=== PATIENT | male | born 1965 | race Caucasian/White ===

== ENCOUNTER 2016-11-16 06:02 | Emergency (ER) | payer OTHER ==
[~2016-11-16] VITALS: Ht 177.8 cm; Wt 107.0 kg
[~2016-11-16 06:02] MED LIST: LISI-366 PO; LISI40TA; MAXZ PO
[2016-11-16 06:29] VITALS: BP 126/87; PULSE 90; RESP 18; TEMP 98.7; O2SAT 98
--- NOTE | 2016-11-16 06:30 | PD ---
HPI Chief Complaint: Carter act Time Seen by Provider: 06:08 Travel History International Travel<30 days: No Contact w/Intl Traveler<30days: No Traveled to known affect area: No History of Present Illness HPI 51-year-old white male presents to emergency department under Carter act by PD. The patient states that over last year or 2 he's had progressive problems with depression. The patient states that it seemed to start after his father . He said soon after that his [id number] . Later in the year his developed gastric cancer and the week of . He also states that he's been depressed regarding his own health. He has recently had been diagnosed with stage IV kidney disease secondary to poorly controlled hypertension. He also has a heart murmur. Social Security has denied his disability. Since then he's been battling depression and anxiety. He has spoke to his physician regarding this. He was allegedly going to be referred to a psychologist before he was put on medication. The patient had a anxiety attack this evening. He called his daughter and notified her that he was going to overdose on his 2 bottles of blood pressure medicines. She called police who responded to the scene. The patient denies any toxic ingestions. He denies any drugs or alcohol. No recent illness. PFSH Past Medical History Narrative Medical Anxiety, depression, hypertension, heart murmur Anxiety: Yes Cardiovascular Problems: Yes (htn mitral valve prolapse) Diminished Hearing: No Hypertension: Yes Tetanus Vaccination: < 5 Years Past Surgical History Narrative Surgical Left knee arthroscopy Social History Alcohol Use: Yes (rare) Tobacco Use: No Substance Use: No Allergies-Medications (Allergen,Severity, Reaction): Coded Allergies: ibuprofen (Unverified Allergy, Mild, sweeling, 10/01/16) Reported Meds & Prescriptions Reported Meds & Active Scripts Active Lisinopril 40 mg (Lisinopril) 40 Mg Tab 1 Tab PO DAILY 30 Days Maxzide (Triamterene/HCTZ) 75 Mg/50 Mg Tab 1 Tab PO DAILY 30 Days Reported Maxzide (Triamterene/HCTZ) 75 Mg/50 Mg Tab 1 Tab PO DAILY Prinivil 40 mg (Lisinopril) 40 Mg Tab Review of Systems Except as stated in HPI: all other systems reviewed are Neg Psychiatric: Positive: Depression, Suicidal Ideations, No: Anxiety, Disorder of Thought, Mood Disorder, Homicidal Ideation Physical Exam Narrative GENERAL: Well-nourished, well-developed patient. SKIN: Warm and dry. HEAD: Normocephalic and atraumatic. EYES: No scleral icterus. No injection or drainage. ENT: No nasal drainage noted. Mucous membranes pink. Airway patent. NECK: Supple, trachea midline. Moves head freely without obvious discomfort. CARDIOVASCULAR: Regular rate and rhythm without murmurs, gallops, or rubs. RESPIRATORY: Breath sounds equal bilaterally. No accessory muscle use. GASTROINTESTINAL: Abdomen soft, non-tender, nondistended. EXTREMITIES: No cyanosis or edema. BACK: Nontender without obvious deformity. No CVA tenderness. NEURO: Patient is alert and oriented. no sensorimotor deficits. Nonfocal. Normal speech. PSYCH: No delusions. No auditory or visual hallucinations. Data Data Orders Orders Complete Blood Count With Diff (11/16/16 06:15) Comprehensive Metabolic Panel (11/16/16 06:15) Urinalysis - C+S If Indicated (11/16/16 06:15) Psych Screen (11/16/16 06:15) Drug Screen, Random Urine (11/16/16 06:15) Alcohol (Ethanol) (11/16/16 06:15) MDM Medical Decision Making Medical Screen Exam Complete: Yes Emergency Medical Condition: Yes Medical Record Reviewed: Yes Differential Diagnosis MDM: High Differential diagnoses: Schizophrenia, schizoaffective disorder, bipolar, anxiety, depression, adjustment reaction, mood disorder NOS, ODD, depressive disorder NOS, dementia, dementia with agitation, psychosis NOS, substance induced mood disorder, intermittent explosive disorder, Asperger syndrome, infection,electrolyte abnormality, malingering. Narrative Course Mental health screening discussed with the patient. Psychiatric screen ordered. The patient has been medically cleared. This is medical clearance for psychiatric admission Diagnosis Primary Impression: Medical clearance for psychiatric admission Condition: Stable Bhavin Gomez Nov 16, 2016 06:29
[2016-11-16] MEDS ORDERED: TRIA1TAB5 PO (06:47)
[2016-11-16] MEDS ORDERED: LISI40TA PO (06:47)
[2016-11-16] MEDS ORDERED: AMLO10 PO (06:47)
[2016-11-16 07:21] LABS: AUTOMATED NEUTROPHIL # 5.9 TH/MM3 (1.8-7.7); BASOPHIL # 0.1 TH/MM3 (0-0.2); BASOPHIL % 0.8 % (0.0-2.0); EOSINOPHIL # 0.3 TH/MM3 (0-0.4); EOSINOPHIL % 3.4 % (0.0-4.0); HEMATOCRIT 38.9 % (39.0-51.0); HEMO FLAGS DIFF FINAL; LYMPH % 18.9 % (9.0-44.0); LYMPHOCYTE # 1.7 TH/MM3 (1.0-4.8); MEAN CELL VOLUME 85.5 FL (80.0-100.0); MEAN CORPUSCULAR HEMOGLOBIN 29.5 PG (27.0-34.0); MEAN CORPUSCULAR HGB CONC 34.5 % (32.0-36.0); MONO % 9.7 % (0.0-8.0); NEUT % 67.2 % (16.0-70.0); PLATELET COUNT 246 TH/MM3 (150-450); RED BLOOD COUNT 4.55 MIL/MM3 (4.50-5.90); RED CELL DISTRIBUTION WIDTH 13.6 % (11.6-17.2); WHITE BLOOD COUNT 8.8 TH/MM3 (4.0-11.0)
[2016-11-16 07:43] LABS: ANION GAP 10 MEQ/L (5-15); AST (GOT) 35 U/L (15-37); BICARBONATE 21.1 MEQ/L (21.0-32.0); BLOOD UREA NITROGEN 40 MG/DL (7-18); CHLORIDE 108 MEQ/L (98-107); GLOMERULAR FILTRATION RATE 36 ML/MIN (>89); POTASSIUM 3.7 MEQ/L (3.5-5.1); SODIUM (NA) 139 MEQ/L (136-145)
[2016-11-16 07:44] LABS: ALT (GPT) 31 U/L (12-78)
[2016-11-16 07:46] LABS: ALKALINE PHOSPHATASE 107 U/L (45-117); TOTAL BILIRUBIN ADULT 0.2 MG/DL (0.2-1.0)
[2016-11-16 07:50] LABS: ALCOHOL LESS THAN 3 MG/DL (0-5)
--- NOTE | 2016-11-16 08:21 | PD ---
Physical Exam Date Seen by Provider: Nov 16, 2016 Narrative This patient was signed out to me at 7 AM by Bhavin Gomez pending medical clearance labs for a psychiatric evaluation. Data Data Last Documented VS Vital Signs Date Time Temp Pulse Resp B/P (MAP) Pulse Ox O2 Delivery O2 Flow Rate FiO2 11/16/16 06:29 98.7 90 18 126/87 (100) 98 Orders Orders Complete Blood Count With Diff (11/16/16 06:15) Comprehensive Metabolic Panel (11/16/16 06:15) Urinalysis - C+S If Indicated (11/16/16 06:15) Psych Screen (11/16/16 06:15) Drug Screen, Random Urine (11/16/16 06:15) Alcohol (Ethanol) (11/16/16 06:15) Ns (Bolus) Inj (11/16/16 08:30) Ns (Bolus) Inj (11/16/16 08:30) Labs Laboratory Tests Test 11/16/16 07:00 White Blood Count 8.8 TH/MM3 Red Blood Count 4.55 MIL/MM3 Hemoglobin 13.4 GM/DL Hematocrit 38.9 % Mean Corpuscular Volume 85.5 FL Mean Corpuscular Hemoglobin 29.5 PG Mean Corpuscular Hemoglobin Concent 34.5 % Red Cell Distribution Width 13.6 % Platelet Count 246 TH/MM3 Mean Platelet Volume 9.1 FL Neutrophils (%) (Auto) 67.2 % Lymphocytes (%) (Auto) 18.9 % Monocytes (%) (Auto) 9.7 % Eosinophils (%) (Auto) 3.4 % Basophils (%) (Auto) 0.8 % Neutrophils # (Auto) 5.9 TH/MM3 Lymphocytes # (Auto) 1.7 TH/MM3 Monocytes # (Auto) 0.9 TH/MM3 Eosinophils # (Auto) 0.3 TH/MM3 Basophils # (Auto) 0.1 TH/MM3 CBC Comment DIFF FINAL Differential Comment Blood Urea Nitrogen 40 MG/DL Creatinine 1.94 MG/DL Random Glucose 104 MG/DL Total Protein 7.5 GM/DL Albumin 3.9 GM/DL Calcium Level 9.1 MG/DL Alkaline Phosphatase 107 U/L Aspartate Amino Transf (AST/SGOT) 35 U/L Alanine Aminotransferase (ALT/SGPT) 31 U/L Total Bilirubin 0.2 MG/DL Sodium Level 139 MEQ/L Potassium Level 3.7 MEQ/L Chloride Level 108 MEQ/L Carbon Dioxide Level 21.1 MEQ/L Anion Gap 10 MEQ/L Estimat Glomerular Filtration Rate 36 ML/MIN Ethyl Alcohol Level LESS THAN 3 MG/DL MDM Supervised Visit with JEFF: Yes Narrative Course CBC & BMP Diagram 11/16/16 07:00 Total Protein 7.5, Albumin 3.9, Calcium Level 9.1, Alkaline Phosphatase 107, Aspartate Amino Transf (AST/SGOT) 35, Alanine Aminotransferase (ALT/SGPT) 31, Total Bilirubin 0.2 Alcohol level is negative. His BUN and creatinine are increased from previous. The ratio indicates dehydration. I have ordered 2 L of fluid. Otherwise, he is medically clear for psychiatric evaluation. Diagnosis Primary Impression: Medical clearance for psychiatric admission Additional Impression: Dehydration Condition: Stable Meri Salas MD Nov 16, 2016 08:21
[2016-11-16] MEDS ORDERED: SODIUM CHLOR 0.9% 1000 ML INJ 1,000 ML IV ONE ×2 (08:30)
[2016-11-16 09:50] LABS: BLOOD, URINE NEG (NEG); COMMENT (UR) CULT NOT INDICATED; CULTURE IF INDICATED CULT NOT INDICATED; GLUCOSE,URINE NEG (NEG); HYALINE CAST, URINE 3 /lpf (RARE); KETONE, URINE NEG (NEG); MUCUS URINE FEW /lpf (OCC); NITRITE,URINE NEG (NEG); SQUAMOUS EPITHELIAL CELL URINE 1 /hpf (0-5); URINE COLOR YELLOW (YELLW/STRAW)
[2016-11-16] MEDS: OXYMETAZOLINE HCL 0.05% 15 ML NASAL SPRAY NASAL SCH ×2 (11:31→21:00)
[2016-11-16 16:09] VITALS: BP 145/102; PULSE 77; RESP 14; TEMP 98.5; O2SAT 98
[2016-11-16 18:10] VITALS: BP 141/92; PULSE 75; RESP 18; TEMP 98.1; O2SAT 99
[2016-11-17 00:08] VITALS: BP 146/91; PULSE 72; RESP 18
[2016-11-17] MEDS ORDERED: ACETAMINOPHEN 325 MG TAB PO ONE (00:30)
[2016-11-17] MEDS ORDERED: LISINOPRIL 10 MG TAB PO ONE (00:30)
[2016-11-17 02:20] VITALS: BP 103/58; PULSE 66; RESP 16; TEMP 97.7; O2SAT 96
[2016-11-17 06:52] VITALS: BP 108/64; PULSE 61; RESP 17; TEMP 97.8; O2SAT 96
[2016-11-17] MEDS: OXYMETAZOLINE HCL 0.05% 15 ML NASAL SPRAY NASAL SCH (09:58)
[2016-11-17 11:42] VITALS: BP 153/96; PULSE 72; RESP 12
--- NOTE | 2016-11-17 11:59 | PD.PSY.CON ---
Provisional Diagnosis Admission Date [place]. Adjustment disorder with depressed mood; bereavement History of Present Illness Service Psychiatry Consult Requested By Emergency department Reason for Consult Carter act Primary Care Physician Joel Dutton M.D. HPI Patient is a 51-year-old man, recently , unemployed supported on custodial funds, living alone, with no previous psychiatric history, no previous psychiatric hospitalizations, no previous suicide attempt or self and just behavior, with past medical history of hypertension, mitral valve prolapse and chronic kidney disease who presented to the emergency department under Carter act by police after having stated having suicidal thoughts to his daughter in the context of multiple psychosocial stressors including recent family losses. Patient was seen in the ER, noted recall cooperative interview. Patient states that he had recent family losses which his father had in June 2015, [id number] in July 2015 and then most recently his in December 2015. Patient states that he had been having difficulty grieving over his recent losses, and recently had found out that he was paying rent to her person that did not on the house for the past 9 months which she felt really stressed about. He states that recently he felt more depressed due to these reasons and having suicidal ideations having started a couple weeks ago when it was his 's wedding anniversary and again later on her birthday and on his birthday. He states that the thoughts occur occasionally last about 20 minutes was able to focus on the positive aspects of his life. He states that for the past couple of weeks he has had no change in sleep, energy getting better, no change in concentration or appetite although continues to feel sad and depressed since the passing of his had a worsening recently after having found out about his housing issue. Patient reports that yesterday he felt hopeless and helpless stating "no hope or emilio things will get better" when he was speaking to his daughter yesterday and mentioned that he was looking at his hypertension medication bottles but did not state of planning to take them. He reports that his daughter was concerned and called 911 which police then brought him to the hospital. At this time he reports feeling "okay" denies having any suicidal thoughts, continues to report feeling sad and depressed due to his recent losses the plans to engage in outpatient therapy and mental health services for follow-up. 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 He reports that he can rely on his daughter for support. At this time denies SI, HI, AVH or delusions. Past psychiatric history: Denies Substance use history: Tobacco use but quit, alcohol userarely, last use was 2- 3 months ago and had only 1 beer, denies any use of illegal substance use denies any past rehabilitation or detox programs for substance use. Past medical history: Hypertension, mitral valve prolapse, chronic kidney disease Allergies: Ibuprofen Legal history: denies Social history: Recently , lives alone, semiretired. He worked as a [employer] and last worked in 2004 has 3 adult children, unemployed supported on [employer]. Review of Systems Except as stated in HPI: all other systems reviewed are Neg Past Family Social History Coded Allergies: ibuprofen (Unverified Allergy, Mild, Vein bulges in forehead , 11/16/16) Pt has stage 3 kidney dz and was told to limit NSAIDS Reported Medications Amlodipine (Norvasc) 10 Mg Tab, 10 MG PO DAILY Y for SBP>160, DBP>90, #30 TAB 0 Refills 11/16/16 Triamterene-Hydrochlorothiazide (Triamterene-Hydrochlorothiazide) 75-50 Mg Tab, 1 TAB PO DAILY, #30 TAB 0 Refills 11/16/16 Lisinopril (Lisinopril) 40 Mg Tab, 40 MG PO DAILY for Blood Pressure Management , #30 TAB 0 Refills 11/16/16 Current Medications Medications (Trade) Dose Ordered Sig/Johnnie Route Start Time Stop Time Status Last Admin (Afrin 0.05% Moise [place]) 2 spray Q12HR NASAL 11/16/16 11:30 11/17/16 09:58 Social History See history of present illness Patient's Strengths (min. 2) Verbally and communicative Physical Exam Vital Signs Vital Signs Date Time Temp Pulse Resp B/P (MAP) Pulse Ox O2 Delivery O2 Flow Rate FiO2 11/17/16 06:52 97.8 61 17 108/64 (79) 96 Room Air Mental Status Examination Appearance Appears stated age, calm and cooperative in interview, fair hygiene and grooming , in hospital [facility], fair eye contact Speech: Unremarkable Orientation: x3 Memory: Unremarkable Thought Process: Logical, Organized Thought Content: Unremarkable Language Fluent and spontaneous Fund of Knowledge Average Hallucination Type: None Attention and Concentration: Good Suicidal Ideation: No Previous Suicide Attempts: No Homicidal Ideation: No Previous Homicide Attempts: No Insight: Fair Judgment: WNL Affect: Euthymic Mood: Appropriate Motor Activity: Normal gait Assessment & Plan Problem List: (1) Adjustment disorder with depressed mood ICD Codes: F43.21 - Adjustment disorder with depressed mood (2) Bereavement ICD Codes: Z63.4 - Disappearance and of family member Assessment & Plan Patient is a 51-year-old man with no past psychiatric history with recent family losses currently and bereavement and recently felt more depressed and the anniversary of his 's birthday their wedding anniversary in the context of psychosocial stressors. Patient at this time is at low risk for self -harm due to having a good support system, amenable to seeking outpatient mental health services for support and treatment, no previous substance use, no previous suicide attempts or history of mental illness and currently denying suicidality, future oriented and endorses wanting to live for his children and his grandchildren and for his own life. Patient at this time is psychiatrically cleared for discharge. Regulations as per primary medical team. Patient will be referred to outpatient mental health clinic for her follow-up and continuity of care. Supportive psychotherapy provided. Patient advised to call 911 or go to nearest ED case of emergency. Daughter was contacted and updated with the plan which she agrees to. Patient agrees with plan. Deyvi Shipman MD Nov 17, 2016 11:59
--- NOTE | 2016-11-17 12:05 | PD ---
Physical Exam Date Seen by Provider: Nov 17, 2016 Time Seen by Provider: 11:59 Data Data Last Documented VS Vital Signs Date Time Temp Pulse Resp B/P (MAP) Pulse Ox O2 Delivery O2 Flow Rate FiO2 11/17/16 11:42 72 12 153/96 (115) 11/17/16 06:52 97.8 96 Room Air Orders Orders Complete Blood Count With Diff (11/16/16 06:15) Comprehensive Metabolic Panel (11/16/16 06:15) Urinalysis - C+S If Indicated (11/16/16 06:15) Psych Screen (11/16/16 06:15) Drug Screen, Random Urine (11/16/16 06:15) Alcohol (Ethanol) (11/16/16 06:15) Sodium Chlor 0.9% 1000 Ml Inj (Ns 1000 M (11/16/16 08:30) Sodium Chlor 0.9% 1000 Ml Inj (Ns 1000 M (11/16/16 08:30) Oxymetazoline 0.05% Moise [place] (Afrin 0.0 (11/16/16 11:30) Diet Regular Basic (11/16/16 Dinner) Lisinopril (Prinivil) (11/17/16 00:30) Acetaminophen (Tylenol) (11/17/16 00:30) Diet Regular Basic (11/17/16 Breakfast) Diet Regular Basic (11/17/16 Lunch) Labs Laboratory Tests Test 11/16/16 07:00 11/16/16 09:37 White Blood Count 8.8 TH/MM3 Red Blood Count 4.55 MIL/MM3 Hemoglobin 13.4 GM/DL Hematocrit 38.9 % Mean Corpuscular Volume 85.5 FL Mean Corpuscular Hemoglobin 29.5 PG Mean Corpuscular Hemoglobin Concent 34.5 % Red Cell Distribution Width 13.6 % Platelet Count 246 TH/MM3 Mean Platelet Volume 9.1 FL Neutrophils (%) (Auto) 67.2 % Lymphocytes (%) (Auto) 18.9 % Monocytes (%) (Auto) 9.7 % Eosinophils (%) (Auto) 3.4 % Basophils (%) (Auto) 0.8 % Neutrophils # (Auto) 5.9 TH/MM3 Lymphocytes # (Auto) 1.7 TH/MM3 Monocytes # (Auto) 0.9 TH/MM3 Eosinophils # (Auto) 0.3 TH/MM3 Basophils # (Auto) 0.1 TH/MM3 CBC Comment DIFF FINAL Differential Comment Blood Urea Nitrogen 40 MG/DL Creatinine 1.94 MG/DL Random Glucose 104 MG/DL Total Protein 7.5 GM/DL Albumin 3.9 GM/DL Calcium Level 9.1 MG/DL Alkaline Phosphatase 107 U/L Aspartate Amino Transf (AST/SGOT) 35 U/L Alanine Aminotransferase (ALT/SGPT) 31 U/L Total Bilirubin 0.2 MG/DL Sodium Level 139 MEQ/L Potassium Level 3.7 MEQ/L Chloride Level 108 MEQ/L Carbon Dioxide Level 21.1 MEQ/L Anion Gap 10 MEQ/L Estimat Glomerular Filtration Rate 36 ML/MIN Ethyl Alcohol Level LESS THAN 3 MG/DL Urine Color YELLOW Urine Turbidity CLEAR Urine pH 5.0 Urine Specific [place] 1.021 Urine Protein NEG mg/dL Urine Glucose (UA) NEG mg/dL Urine Ketones NEG mg/dL Urine Occult Blood NEG Urine Nitrite NEG Urine Bilirubin NEG Urine Urobilinogen LESS THAN 2.0 MG/DL Urine Leukocyte Esterase NEG Urine RBC 1 /hpf Urine WBC 1 /hpf Urine Squamous Epithelial Cells 1 /hpf Urine Hyaline Casts 3 /lpf Urine Mucus FEW /lpf Microscopic Urinalysis Comment CULT NOT INDICATED Urine Opiates Screen NEG Urine Barbiturates Screen NEG Urine Amphetamines Screen NEG Urine Benzodiazepines Screen NEG Urine Cocaine Screen NEG Urine Cannabinoids Screen NEG MDM Supervised Visit with JEFF: No Differential Diagnosis Patient was initially seen by Kevin Morin, placed under Carter act him medically cleared for psychiatric evaluation. Please see that note for those details. He was again evaluated by Dr. Deyvi Shipman, psychiatrist, who lifted the BA. Please see his note for details. Dr. Shipman recommends outpatient follow-up with his primary care provider and outpatient psychiatric resources. Vitals reviewed. Patient is hypertensive and has a history of this. On my exam: GENERAL: Well-nourished, well-developed white male in no acute distress. SKIN: Focused skin assessment warm/dry. HEAD: Normocephalic. EYES: No scleral icterus. No injection or drainage. NECK: Supple, trachea midline. No JVD or lymphadenopathy. CARDIOVASCULAR: Regular rate and rhythm without murmurs, gallops, or rubs. RESPIRATORY: Breath sounds clear and equal bilaterally. No accessory muscle use. GASTROINTESTINAL: Abdomen soft, non-tender, nondistended. MUSCULOSKELETAL: No cyanosis, or edema. Equal strength in all extremities. BACK: Nontender without obvious deformity. No CVA tenderness. Patient seems to have strong social support, including a daughter who initiated this visit. He is awake, alert. He is stable and discharged home. Diagnosis Primary Impression: Medical clearance for psychiatric admission Additional Impressions: Dehydration Adjustment disorder with depressed mood Referrals: ACT (Out patient) Primary Care Physician Patient Instructions: Depression (ED), General Instructions Disposition: 01 DISCHARGE HOME Condition: Stable Ina Eng Nov 17, 2016 12:05
== END 2016-11-17 13:01 | disposition home or self-care (01) ==
LOC: NEPD 06:02 → NEPJ 11-17 13:01
DX: E86.0 Dehydration (principal); F43.21 Adjustment disorder with depressed mood; I12.9 Hypertensive chronic kidney disease with stage 1 through stage 4 chronic kidney disease, or unspecified chronic kidney disease; N18.4 Chronic kidney disease, stage 4 (severe); F32.9 Major depressive disorder, single episode, unspecified; F41.9 Anxiety disorder, unspecified; I34.1 Nonrheumatic mitral (valve) prolapse; Z79.899 Other long term (current) drug therapy; Z88.6 Allergy status to analgesic agent
CPT/HCPCS: 80053; 80307; 81001; 85025; 96360; 96361; 99284; J7030